=== PATIENT | male | born 1935 | race Hispanic/Latino ===

== ENCOUNTER 2019-10-06 07:25 | Observation (INO) | payer MEDICARE, OTHER ==
[2019-10-02 12:34] LABS: BASOPHILS # (AUTO) 0.1 (0.0-0.1); BASOPHILS % 0.7 % (0.0-1.0); EOSINOPHILS # (AUTO) 0.3 (0.0-0.4); EOSINOPHILS % 3.5 % (0.0-6.0); HEMATOCRIT 39.9 % (38.2-49.6); HEMOGLOBIN 13.2 g/dL (14.0-18.0); LYMPHOCYTES # (AUTO) 1.6 (1.0-3.2); MEAN CORPUSCULAR HEMOGLOBIN 32.4 pg (28-32); MEAN CORPUSCULAR HGB CONC 33.1 g/dL (31-35); MONOCYTES % 12.9 % (4.4-11.3); NEUTROPHILS # (AUTO) 4.6 (2.1-6.9); NEUTROPHILS % 61.5 % (38.7-80.0); PLATELET COUNT 336 x10e3/uL (140-360); RED BLOOD COUNT 4.07 x10e6/uL (4.3-5.7); RED CELL DISTRIBUTION WIDTH 13.2 % (11.7-14.4)
[2019-10-02 12:51] LABS: INR 0.91; PROTHROMBIN TIME 12.8 seconds (11.9-14.5)
[2019-10-02 12:52] LABS: PARTIAL THROMBOPLASTIN TIME 33.1 seconds (23.8-35.5)
[2019-10-02 13:00] LABS: ALBUMIN 3.9 g/dL (3.5-5.0); ALBUMIN/GLOBULIN RATIO 1.1 (0.8-2.0); CALCIUM 9.1 mg/dL (8.4-10.2); CREATININE, SERUM 2.12 mg/dL (0.72-1.25)
--- NOTE | 2019-10-02 13:59 | Diagnostic Imaging Report ---
EXAMINATION: CHEST 2 VIEWS INDICATION: Pre-operative COMPARISON: None FINDINGS: LINES/TUBES:Right chest pacer. LUNGS:The lungs are mildly hyperinflated. No focal consolidation or pulmonary edema. Mild biapical pleural parenchymal thickening/scarring. PLEURA:No pleural effusion or pneumothorax. MEDIASTINUM:The cardiomediastinal silhouette appears normal in size and shape. Atherosclerotic calcifications of the thoracic aorta. BONES/SOFT TISSUES:No acute osseous injury. ABDOMEN:No free air under the diaphragm. IMPRESSION: Hyperinflated lungs. No focal pneumonia or pulmonary edema. Signed by: Tiesha Segura MD on 10/02/2019 1:56 PM
[2019-10-06] VITALS (23 sets, daily range): BP systolic 131–184; BP diastolic 51–104
[~2019-10-06] VITALS: Ht 167.6 cm; Wt 67.1 kg
[~2019-10-06 07:25] MED LIST: AMLODIPINE BESY10 MG PO; ENALAPRIL MALEA20 MG PO; FENOFIBRATE145 MG PO; LEVOTHYROXINE100 MCG PO; METOPROLOL TART25 MG PO; MONTELUKAST SOD10 MG PO; OMEGA-3100 MG PO; OMEPRAZOLE20 MG PO; OMEPRAZOLE40 MG PO; SIMVASTATIN20 MG PO
[2019-10-06] MEDS ORDERED: CEFAZOLIN SOD IV ONE (08:30)
[2019-10-06] MEDS ORDERED: SODIUM CHLORIDE 0.9% IV ONE (08:30)
[2019-10-06] MEDS ORDERED: BACITRACIN 50,000 UNIT VIAL ONE (08:56)
[2019-10-06] MEDS ORDERED: FENTANYL CITRATE/PF 100MCG/2 ML INJ ONE (08:56)
[2019-10-06] MEDS ORDERED: MIDAZOLAM HCL 2 MG/2 ML VIAL ONE (08:56)
[2019-10-06] MEDS ORDERED: LIDOCAINE HCL 2% LOCAL 20 ML VIAL ONE (08:56)
[2019-10-06] MEDS ORDERED: SODIUM CHLORIDE 0.9% 500ML 1,000 ML ONE (08:56)
[2019-10-06] MEDS ORDERED: SODIUM CHLORIDE 0.9% 1000ML 1,000 ML ONE (08:57)
[2019-10-06] MEDS ORDERED: CEFAZOLIN SOD 1 GM VIAL IV SCH (12:00)
[2019-10-06] MEDS ORDERED: LORAZEPAM 0.5 MG TAB PO PRN (12:00)
--- NOTE | 2019-10-06 12:01 | Operative Report ---
DATE OF PROCEDURE: 10/06/2019 SURGEON: Ralph De La Cruz MD PROCEDURE: 1. Dual chamber pacemaker generator replacement. 2. Placement of new atrial lead. 3. Temporary pacemaker insertion. PREOPERATIVE DIAGNOSIS: Sick sinus syndrome. POSTOPERATIVE DIAGNOSIS: Sick sinus syndrome. ANESTHESIA: Conscious sedation. COMPLICATIONS: None. TECHNIQUE: The patient's right groin was draped and prepped in the usual fashion. The area was anesthetized with lidocaine. Standard Seldinger technique was used to place a 6-Australian sheath into the right femoral vein without difficulty. A temporary pacemaker was inserted into the right ventricular apex. The patient was then re-draped and re-prepped and the right subclavicular area was anesthetized with lidocaine. A scalpel was used to open up the pacemaker pocket and removed the existing generator. The generator was detached from the leads. The existing atrial lead was nonfunctional, was capped off. Micropuncture needle was used to cannulate the right subclavian vein. A right 6-Australian sheath was placed over the guidewire. A new atrial lead was positioned in the right atrial appendage and screwed into place. The leads were then attached to a new generator made by [employer]. The pocket was irrigated with antibiotic solution. The pacemaker generator was placed into the pocket and anchored with 2-0 silk. The pocket was then closed with 4-0 Vicryl. There were no complications. CONCLUSION: Successful dual chamber pacemaker generator replacement and insertion of new atrial lead. Ralph De La Cruz MD DSH/MODL /[id number]
--- NOTE | 2019-10-06 15:20 | Diagnostic Imaging Report ---
X-ray chest AP portable Comparison: 10/02/2019 History: Pacemaker generator replacement. Findings: Right subclavian route dual-chamber AICD. A battery pack in the right subclavian area. No pneumothorax. No pleural effusion. Borderline heart size. Atherosclerotic aorta. No focal lung disease. No acute skeletal or upper abdominal abnormalities. Impression: No acute cardiopulmonary disease. Specifically no pneumothorax or pleural effusion. Signed by: Willie Ge MD on 10/06/2019 3:17 PM
--- NOTE | 2019-10-06 15:20 | NUR ---
Report called to Deidra Gama RN. Reviewed medications given, orders, and procedural events. Deidra Gama RN has no questions at this time.
[2019-10-06] MEDS ORDERED: METOPROLOL TARTRATE 25 MG TAB PO SCH (17:00)
[2019-10-06] MEDS ORDERED: MINOCYCLINE HCL 50 MG CAP PO SCH (17:00)
[2019-10-06] MEDS ORDERED: HYDRALAZINE HCL 20 MG/ML VIAL IV PRN (18:00)
--- NOTE | 2019-10-06 19:40 | NUR ---
BEDSIDE SHIFT REPORT RECEIVED FROM DAY RN. RESPIRATIONS ARE EVEN AND UNLABORED. RT GROIN DRESSING DRY AND INTACT. RT CHEST DRESSING DRY AND INTACT. PT TO BINA RAE WHEN OUT OF BED. TELE ON. 20 G SL IN LEFT HAND. PEDAL PULSES PALPABLE BILATERALLY.PT DENIES PAIN. PT VOIDING WITHOUT DIFFICULTY PER URINAL. UP WITH ONE ASSIST TO BATHROOM. CALL LIGHT WITHIN REACH. BED ALARM ON. BED IN LOW POSITION.
--- NOTE | 2019-10-06 23:30 | NUR ---
PT C/O DUE TO SMALL MEAL PORTIONS. ENDORSED TO DAY RN. PT GIVEN SANDWICH, 2 PUDDINGS AND APPLE JUICE THIS PM.
[2019-10-07] VITALS: BP 178/73
[2019-10-07 04:00] VITALS: BP 176/67
[2019-10-07] MEDS ORDERED: LEVOTHYROXINE SODIUM 100 MCG TAB PO SCH (06:00)
[2019-10-07] MEDS ORDERED: PANTOPRAZOLE SOD 40 MG TABEC PO SCH (07:30)
[2019-10-07 08:11] VITALS: BP 165/62
[2019-10-07] MEDS ORDERED: ASPIRIN81 MG PO (08:47)
[2019-10-07] MEDS ORDERED: NIACIN ER500 MG PO (08:48)
[2019-10-07] MEDS ORDERED: OMEPRAZOLE40 MG PO (08:51)
[2019-10-07] MEDS ORDERED: FENOFIBRATE145 MG PO (08:58)
[2019-10-07] MEDS ORDERED: ENALAPRIL MALEATE 10 MG TAB PO SCH (09:00)
[2019-10-07] MEDS ORDERED: HOME MEDICATION--PATIENTS OWN PO SCH (09:00)
[2019-10-07] MEDS ORDERED: MONTELUKAST SODIUM 10 MG TAB PO SCH (09:00)
[2019-10-07] MEDS ORDERED: AMLODIPINE BESYLATE 10 MG TAB PO SCH (09:00)
[2019-10-07 09:39] VITALS: BP 165/62
== END 2019-10-07 09:57 | disposition home or self-care (01) ==
LOC: CATH LAB 07:25 → PACU V 11:46 → MED/SURG 15:27
PROVIDERS: ADMIT Internal Medicine Cardiovascular Disease; ATTEND Internal Medicine Cardiovascular Disease
DX: I49.5 Sick sinus syndrome (principal); R09.89 Other specified symptoms and signs involving the circulatory and respiratory systems; Z01.810 Encounter for preprocedural cardiovascular examination; Z01.818 Encounter for other preprocedural examination; Z11.59 Encounter for screening for other viral diseases; E78.5 Hyperlipidemia, unspecified; E03.9 Hypothyroidism, unspecified; Z82.49 Family history of ischemic heart disease and other diseases of the circulatory system; Z83.3 Family history of diabetes mellitus
CPT/HCPCS: 33206; 33233; 33235; 36415; 71045; 71046; 80053; 85025; 85610; 85730; 87635; 93005; C1766; C1769; C1785; C1898; G0378 ×2; J0690; J2001; J2250; J3010; J7030; J7040; 33210; 33228; 99152; 99153